=== PATIENT | female | born 1955 | race Caucasian/White ===

== ENCOUNTER 2021-12-15 09:26 | Inpatient (IN) | payer OTHER, MEDICARE, SELFPAY ==
[2021-12-15] VITALS (9 sets, daily range): BP systolic 124–142; BP diastolic 66–80; PULSE 73–91; RESP 15–22; TEMP 36.4–37.1; O2SAT 93–99; BMI 35.7
--- NOTE | 2021-12-15 10:22 | NURSING ---
per patient she has had nothing to eat or drink since yesterday afternoon (12/14/21)
[2021-12-15] MEDS: 0.9% Normal Saline 1,000 ML 100 ML IV ×2 (10:44→17:31)
--- NOTE | 2021-12-15 11:57 | NURSING ---
Patient off unit to AC with [employer] at this time.
[2021-12-15] MEDS: Ondansetron 4 MG/2 ML Vial IV (12:13)
[2021-12-15 12:52] LABS: Potassium 3.5 mmol/L (3.5-5.1)
[2021-12-15] MEDS: Lactated Ringers 1,000 ML 15 ML IV (13:00)
[2021-12-15] MEDS: Cefazolin 2 GM in 0.9% Normal Saline 100 ML IV (14:02)
--- NOTE | 2021-12-15 14:42 | PCM.CONS.U ---
HPI Consult Data Date of Consult: 12/15/21 HPI Narrative Reason for Consultation: 4 mm stone on the right side HPI Narrative: SARI MIKE, is a 66 F who presents as a transfer from an outside hospital CAT scan was done that reported a 4 mm stone in the distal right ureter she been having severe pain so today reticulocyte surgery to treat the stone I explained to the patient that if she gets a stent she needs to have it removed when she goes back to [place]. [facility] Medical History (Updated 12/15/21 @ 14:[address] Paco Dominique MD) Anemia Anxiety Cancer Chronic pain Depression GERD (gastroesophageal reflux disease) History of immunosuppression therapy Injury of head and neck Kidney stones Non-smoker Syncope Home Medications ciprofloxacin HCl 500 mg tablet (Cipro) 500 mg PO BID #6 tabs 12/15/21 [Rx Last Taken Unknown] omeprazole 20 mg capsule,delayed release 20 mg PO DAILY acid reflex 12/15/21 [History Last Taken 12/13/21] ondansetron HCl 4 mg tablet 4 mg PO Q6H PRN PRN Nausea 12/15/21 [History Last Taken Unknown] oxycodone-acetaminophen 5 mg-325 mg tablet 1 tab PO Q6H PRN pain 7 days #14 tabs 12/15/21 [Rx Last Taken Unknown] Allergy/AdvReac Type Severity Reaction Status Date / Time Iodinated Contrast Media Allergy Swelling Verified 12/15/21 09:53 shellfish derived Allergy Anaphylaxis Verified 12/15/21 09:53 Sulfa (Sulfonamide Allergy Other Verified 12/15/21 09:53 Antibiotics) Surgical History (Updated 12/15/21 @ 10:10 by Eden Cloud) S/P tubal ligation Social History Smoking Status: Never smoker Lab / Micro Data Result Diagrams: 12/15/21 12:40 Labs: Laboratory Results - last 24 hr 12/15/21 12:40: Potassium 3.5
--- NOTE | 2021-12-15 14:43 | DCINST_ITS ---
Discharge Instructions Diet Discharge Diet: No restrictions and Light diet - advance as tolerated Activity Discharge Activity: Return to Normal Activity and No Restrictions Follow Up Care Test Results: Test results from this visit will be discussed in further detail at your follow- up appointment, if applicable. Discharge Plan Admission Admit Date/Time: 12/15/21 09:48 Primary Reason for Your Visit: kidney Attending Provider: Ryan Eid Primary Care Provider: Care Physician,No Primary Consulting Providers: Jeff Sanchez ; Paco Dominique Discharge Orders/Prescriptions Prescriptions: New ciprofloxacin HCl [Cipro] 500 mg tablet 500 mg PO BID Qty: 6 0RF oxycodone-acetaminophen 5-325 mg tablet 1 tab PO Q6H PRN (Reason: pain) 7 Days Qty: 14 0RF Continued ondansetron HCl 4 mg tablet 4 mg PO Q6H PRN PRN (Reason: Nausea) Label Comments: TAKE 1 TABLET BY MOUTH EVERY 8 HOURS NEEDED FOR NAUSEA AND VOMITING omeprazole 20 mg capsule,delayed release(DR/EC) 20 mg PO DAILY Label Comments: TAKE 1 CAPSULE BY MOUTH EVERY DAY Referrals / Follow Up: Paco Dominique MD [Med Staff - Active Staff] - Care Physician,No Primary [Primary Care Provider] - Disposition Discharge Orders: Discharge Patient (Routine); Ordered 12/15/21 Ordered By: Dr. Paco Dominique
--- NOTE | 2021-12-15 14:45 | OP.PCM_ITS ---
Report of Operation Date of Procedure: 12/15/21 Pre-Operative Diagnosis: Right ureteral calculi 4 mm severe right flank pain Post-Operative Diagnosis: Same Surgery/Procedure Performed:: Cystoscopy right retrograde pyelogram right ureteroscopy, no stent Description of Surgical Findings:: Indication this is a 66-year-old female she is off from [place] and she was visiting the area of the [facility] presented to the emergency room with s evere right flank pain. A CT scan was done at [facility] and the report said that there was a 4 mm stone in the distal right ureter so she was transferred here for further care since there is no urologist in [place]. She explained having the pain on the right side rating down the right flank area. Spoke to the patient prior to surgery that we can take her surgery to go up and laser the stone she may need a stent and she needs that stent removed and we put a stent in. Patient was taken back to the operating room, after smooth induction of anesthesia she was placed in dorsolithotomy position. The urethra vaginal area prepped and draped in usual fashion when of the bladder with a 21 Palestinian rigid cystourethroscope, the urethra looked normal the trigone was normal identified the left ureteral orifices look normal the right ureteral orifice only slightly inflamed some trigonitis in the trigone. I then cannulated the right ureteral orifice with a Pollick catheter advanced it up I could not feel a stone I did a retrograde pyelogram I could not identify a stone on the retrograde pyelogram appeared to be draining normally and then put a wire up the right ureter and went in with a flexible 4.9 Palestinian flexible ureteroscope was able to get into the ureter easily and work my way all the way to the kidney inspected the upper pole midpole lower pole the kidney there was no stones visible no blood I then worked my way down the ureter and there was no stone fragments along the course of the ureter. The patient most likely had passed a stone. Probably just having some residual pain. No stent was placed since there was no stone and the ureter was nice and open. So the patient bladder was drained no stent was placed and she was taken back to PACU good condition. Surgeon: Paco Dominique Type of Anesthesia: General Drains: none Admit VTE Documentation VTE Present on Admission: No VTE Mechan Device Prophylaxis: SCD's VTE Pharm Prophylaxis ordered?: No
--- NOTE | 2021-12-15 15:07 | NURSING ---
[facility] lab ([place]) notified of request for results of cultures when have, fax number provided.
--- NOTE | 2021-12-15 16:13 | PCM.HP.STD ---
HPI - General General Date of Admission: 12/15/21 HPI Narrative SARI MIKE, is a 66 F who presents hospital from an outside hospital for right flank pain. She was found to have a 4 mm stone on imaging at that hospital as well as signs of UTI on UA. She was transferred here secondary to the fact that hospital did not have a urologist. She did receive a dose of IV antibiotics in the ER. She denies any shortness of breath or chest pain, she is currently undergoing chemotherapy for stage IV colon cancer. [facility] Medical History (Updated 12/15/21 @ 16:[address] Ryan Eid MD) Anemia Anxiety Cancer Chronic pain Depression GERD (gastroesophageal reflux disease) History of immunosuppression therapy Injury of head and neck Kidney stones Non-smoker Syncope Home Medications ciprofloxacin HCl 500 mg tablet (Cipro) 500 mg PO BID #6 tabs 12/15/21 [Rx Last Taken Unknown] omeprazole 20 mg capsule,delayed release 20 mg PO DAILY acid reflex 12/15/21 [History Last Taken 12/13/21] ondansetron HCl 4 mg tablet 4 mg PO Q6H PRN PRN Nausea 12/15/21 [History Last Taken Unknown] oxycodone-acetaminophen 5 mg-325 mg tablet 1 tab PO Q6H PRN pain 7 days #14 tabs 12/15/21 [Rx Last Taken Unknown] Allergy/AdvReac Type Severity Reaction Status Date / Time Iodinated Contrast Media Allergy Swelling Verified 12/15/21 09:53 shellfish derived Allergy Anaphylaxis Verified 12/15/21 09:53 Sulfa (Sulfonamide Allergy Other Verified 12/15/21 09:53 Antibiotics) Family History (Updated 12/15/21 @ 16:[address] Ryan Eid MD) Other Cancer Surgical History (Updated 12/15/21 @ 10:10 by Eden Cloud) S/P tubal ligation Social History Smoking Status: Never smoker ROS Constitutional Constitutional: Reports fever(s); Denies chills, fatigue or malaise Eyes Eyes: Denies blurry vision ENT HEENT: Denies headache(s) or nasal discharge Cardiovascular Cardiovascular: Denies chest pain, dyspnea on exertion or syncope Respiratory/Chest Respiratory/Chest: Denies cough, shortness of breath at rest or shortness of breath with exertion Gastrointestinal Gastrointestinal: Reports abdominal pain, nausea and vomiting; Denies constipation or diarrhea Genitourinary Genitourinary: Denies dysuria Neurologic Neurologic: Denies focal weakness, numbness or tremor(s) Psychiatric Psychiatric: Denies anxiety or depression Vital Signs Vital Signs Vital Signs: 12/15/21 09:51 12/15/21 11:44 12/15/21 14:50 Temperature 98.1 F 98.1 F 97.7 F L Temperature Source Oral Oral Temporal Pulse Rate 76 76 81 Respiratory Rate 22 H 22 H 15 Respiratory Pattern Normal Blood Pressure 126/80 H 126/80 H 139/67 H Blood Pressure Mean 95 95 91 Blood Pressure Source Monitor Monitor Blood Pressure Position Semi-Fowlers Semi-Fowlers Blood Pressure Location Right Arm Right Arm Baseline BP 126/80 Pulse Ox 99 99 97 Oxygen Delivery Method Room Air Room Air Room Air 12/15/21 15:00 12/15/21 15:13 12/15/21 15:34 Temperature 97.6 F L 97.5 F L Temperature Source Temporal Oral Pulse Rate 77 75 73 Respiratory Rate 18 15 18 Respiratory Pattern Blood Pressure 142/66 H 135/67 H 129/66 H Blood Pressure Mean 91 89 87 Blood Pressure Source Monitor Monitor Monitor Blood Pressure Position Semi-Fowlers Semi-Fowlers Semi-Fowlers Blood Pressure Location Right Arm Right Arm Right Arm Baseline BP 126/80 126/80 Pulse Ox 93 95 99 Oxygen Delivery Method Room Air Room Air Room Air Weight Weight: 195 lb 8.8 oz Body Mass Index (BMI) 35.7 Physical Exam Narrative General: Alert, Oriented x3, Cooperative, No apparent distress HEENT: Atraumatic, PERRLA, EOMI, Normocephalic Oral: Moist Mucosa Neck: Supple, No JVD Lungs: Clear to auscultation, Normal air movement, No rhonchi, No wheeze, No rales Cardiovascular: Regular rate, Regular Rhythm, Normal S1, Normal S2, No murmurs Abdomen: Soft, Non Tender, Non-Distended, No Hepato-splenomegaly Extremities: No edema, Capillary Refill Less than 3 Seconds Skin: No rashes, No breakdown Musculoskeletal: No Tenderness to Palpation of Joints or Extremities Neurological: Cranial nerves II-XII grossly intact, Motor Exam 5/5 strength throughout, Sensory exam intact to light touch and pain Psych/Mental Status: Normal Affect, Appropriate Results Lab / Micro Data Result Diagrams: 12/15/21 12:40 Labs: Laboratory Results - last 24 hr 12/15/21 12:40: Potassium 3.5 Assessment & Plan Assessment/Plan (1) Kidney stones: (2) UTI (urinary tract infection): PLAN: Plan 1. UTI secondary to kidney stone ? Continue with IV antibiotics ? She had a cystoscopy today which demonstrated no stone, she likely passed it prior to the procedure ? Continue with pain medications ? She would like to stay tonight because they are from out of town and they only have a hotel room down by the outside hospital. ? We will try to get in touch with the outside hospital tomorrow to obtain culture data to be able to narrow p.o. antibiotic choices ? I did also recommend that if we do not have culture data by tomorrow morning, that she is to notify her oncologist so that way they can get the results from the outside hospital and adjust antibiotics as necessary. 2. Stage IV colon cancer ? She is due for her next round of chemo on Monday, she should be completing antibiotics by then ? I discussed with her that she can talk to her oncologist about pushing back the chemo dose if they feel like it is appropriate secondary to her recent infection DVT: SCDs Charges/Coding Visit Charges Inpatient E&M: 81993 Init Hosp L2
[2021-12-15] MEDS: Docusate Sodium 100 MG Capsule PO (17:59)
[2021-12-15] MEDS: Polyethylene Glycol 3350 17 GM PACKET PO (17:59)
[2021-12-16 00:14] VITALS: BP 130/65; PULSE 76; RESP 18; TEMP 36.8; O2SAT 93
[2021-12-16] MEDS: 0.9% Normal Saline 1,000 ML 100 ML IV (03:36)
[2021-12-16 06:08] LABS: Absolute Lymphocyte Count 0.78 X10^3/uL (0.83-4.51); Absolute Neutrophil Count 3.6 X10^3/uL (2.0-7.7); Basophil# 0.01 X10^3/uL; Basophil% 0.2 % (0-1); Eosinophil# 0.06 X10^3/uL; Eosinophils% 0.9 % (0-5); Hemoglobin 10.8 g/dL (12.0-15.0); Lymphocyte # 0.78 X10^3/ul (0.83-4.51); Lymphocyte % 12.2 % (19-41); Mean Corp Hgb Conc 32.7 g/dL (32-36); Mean Corpuscular Hgb 31.8 pg (27.0-32.0); Mean Corpuscular Volume 97.1 fL (81-99); Mean Platelet Vol. 9.4 fl (6.2-12.0); Monocyte# 1.86 X10^3/uL; Monocyte% 29.2 % (0-10); NRBC Flagged by Analyzer 0 % (0-5); Neutrophil # 3.63 X10^3/uL (2.7-7.7); POSITIVE DIFFERENTIAL YES; Platelet Count 199 K/mm3 (150-450); RBC Distribution Width CV 14.3 % (11.6-14.6); RBC Distribution Width SD 50.5 fl (35.1-43.9); White Blood Count 6.4 K/mm3 (4.4-11.0)
[2021-12-16 06:21] VITALS: BP 133/68; PULSE 64; RESP 18; TEMP 36.7; O2SAT 97
[2021-12-16 06:22] LABS: Differential Indicated SCAN CRITERIA MET
[2021-12-16 06:23] LABS: Differential Comment SCANNED
[2021-12-16 06:30] LABS: Anion Gap 7 (5-15); BUN 11 mg/dL (7-18); BUN/Creat Ratio 16.9 RATIO (10-20); Calcium,Total 7.7 mg/dL (8.5-10.1); Chloride 109 mmol/L (98-107); Creatinine, Serum 0.65 mg/dL (0.55-1.02); EST Glomerular Filtration Rate 97 mL/min (>60); Est Glom Filt Rate - Afr Amer 118 mL/min (>60); Estimated Creatinine Clearance 69.16 ml/min; Glucose 105 mg/dL (74-106); Potassium 3.1 mmol/L (3.5-5.1); Sodium Level 141 mmol/L (136-145)
[2021-12-16 07:48] LABS: Magnesium 1.8 mg/dL (1.6-2.6)
[2021-12-16] MEDS: Ceftriaxone 1 GM/50 ML BAG IV (10:13)
[2021-12-16 10:17] VITALS: BP 122/60; PULSE 70; RESP 17; TEMP 36.4; O2SAT 100
[2021-12-16] MEDS: Potassium Chloride Oral Tablet 20 MEQ 60 MEQ PO (10:27)
--- NOTE | 2021-12-16 11:29 | DCINST_ITS ---
Discharge Instructions Diet Discharge Diet: No restrictions and Light diet - advance as tolerated Dressing / Incision Call your doctor if you observe: Fever of 101 or Higher, Shortness of breath, Dizziness, Fainting spells, Swelling in the ankles, Chest pain and Increased palpitations (irregular heartbeat) Follow Up Care Test Results: Test results from this visit will be discussed in further detail at your follow- up appointment, if applicable. Discharge Plan Admission Admit Date/Time: 12/15/21 09:48 Primary Reason for Your Visit: kidney Attending Provider: Ryan Eid Primary Care Provider: Care Physician,No Primary Consulting Providers: Jeff Sanchez ; Paco Dominique Discharge Orders/Prescriptions Prescriptions: New ciprofloxacin HCl [Cipro] 500 mg tablet 500 mg PO BID Qty: 6 0RF oxycodone-acetaminophen 5-325 mg tablet 1 tab PO Q6H PRN (Reason: pain) 7 Days Qty: 14 0RF Continued ondansetron HCl 4 mg tablet 4 mg PO Q6H PRN PRN (Reason: Nausea) Label Comments: TAKE 1 TABLET BY MOUTH EVERY 8 HOURS NEEDED FOR NAUSEA AND VOMITING omeprazole 20 mg capsule,delayed release(DR/EC) 20 mg PO DAILY Label Comments: TAKE 1 CAPSULE BY MOUTH EVERY DAY Referrals / Follow Up: Paco Dominique MD [Med Staff - Active Staff] - Care Physician,No Primary [Primary Care Provider] - Disposition Disposition (needs filled in before D/C Order can be placed): Home, Self Care
--- NOTE | 2021-12-16 11:30 | CASEMGMT ---
RN HARRISON RELATIONSHIP MANAGER CM to room to meet with patient for initial transition planning/care coordination assessment. RN HARRISON introduced self and role at [facility]. Pt voices understanding and consents to assessment at this time. Pt resting in bed in no distress at this time. Pt is A/O at this time and answers all questions appropriately. Care providers, pharmacy, and demographics verified/updated at this time. PCP: Dr Jara in [place], [place] Specialists:Dr Trinidad, oncologist @ [facility] in [place], [place]. Pt states she gets chemo tx's every other week. Preferred Pharmacy: [facility] retail Insurance: [employer], MCR A Prescription Benefit: Yes Living Will/HPOA: Pt does not currently have LW/HCPOA LNOK: , Sanjeev Living Arrangements: Lives w/her and 92-yr-old uncle in one-story home w/basement w/2 steps to enter. Uncle stays on the main floor. Pt and her live in the basement. 10 steps to the basement. Pt states she does okay with the stairs most of the time unless I'm not feeling well. She states she just takes them slowly. There is a bathroom on both floors. Pt reports being independent w/ADL's and IADL's and helps take care of her uncle (home mgmt tasks mostly). Transportation: Pt states both she and her drive, although he has been doing most of the driving lately. DME: Has a walker and BSC available, but does not use them. Denies any DME needs. HHC/SNF: No hx of SNF. Has had HHC in the past. Denies need for HHC and no needs identified. Pt wishes to return home and states has no concerns with going home at time of discharge. CM to follow for any discharge planning/needs. Pt voices no concerns/needs at this time. Advised pt to ask for CM if any questions/concerns/needs arise. Voices understanding. PLAN: Home w/spousal support and discharge plans in place. Prateek SKY RN, CM
--- NOTE | 2021-12-16 12:55 | DS.PCM_ITS ---
Providers Date of Admission: 12/15/21 Primary Care Physician: No Primary Care Phys Consultations 12/15/21 09:47 Consult: Urology Routine Consulting Provider: Paco Dominique Reason for Consult: UTi with stone EMERGENT Consult: No MD Notified: Yes Date Notified: 12/15/21 Time Notified: 10:28 Method of Notification: Verbal Comments:: Aware the patient is coming Reason For Visit: TX FROM [place]/KIDNEY STONE Diagnosis Discharge Diagnosis (1) Kidney stones: Status: Acute Code(s): N20.0 - Calculus of kidney (2) UTI (urinary tract infection): Status: Acute Code(s): N39.0 - Urinary tract infection, site not specified Plan 1. UTI secondary to kidney stone ? Continue with IV antibiotics ? She had a cystoscopy today which demonstrated no stone, she likely passed it prior to the procedure ? Continue with pain medications ? She would like to stay tonight because they are from out of town and they only have a hotel room down by the outside hospital. ? We will try to get in touch with the outside hospital tomorrow to obtain culture data to be able to narrow p.o. antibiotic choices ? I did also recommend that if we do not have culture data by tomorrow morning, that she is to notify her oncologist so that way they can get the results from the outside hospital and adjust antibiotics as necessary. 2. Stage IV colon cancer ? She is due for her next round of chemo on Monday, she should be completing antibiotics by then ? I discussed with her that she can talk to her oncologist about pushing back the chemo dose if they feel like it is appropriate secondary to her recent infection DVT: SCDs Medications at Discharge Home Medications ciprofloxacin HCl 500 mg tablet (Cipro) 500 mg PO BID #6 tabs 12/15/21 omeprazole 20 mg capsule,delayed release 20 mg PO DAILY acid reflex 12/15/21 ondansetron HCl 4 mg tablet 4 mg PO Q6H PRN PRN Nausea 12/15/21 oxycodone-acetaminophen 5 mg-325 mg tablet 1 tab PO Q6H PRN pain 7 days #14 tabs 12/15/21 Hospital Course Operations None and - (Cystoscopy) Procedures None Summary of Care Provided Minutes Spent on Discharge: 41 Hospital Course: Per HPI: SARI MALI MIKE, is a 66 F who presents hospital from an outside hospital for right flank pain.? She was found to have a 4 mm stone on imaging at that hospital as well as signs of UTI on UA.? She was transferred here secondary to the fact that hospital did not have a urologist.? She did receive a dose of IV antibiotics in the ER.? She denies any shortness of breath or chest pain, she is currently undergoing chemotherapy for stage IV colon cancer. Hospital Course: 1. UTI secondary to kidney stone?66-year-old female with a history of stage IV colon cancer presents to the hospital with right flank pain. She presented to an outside hospital and they did imaging and saw a stone and her UA was consi stent with a UTI. She does have a urine culture pending however the sensitivities are not completed yet. I discussed with her the plan for possible discharge today she expressed understanding of the risk benefits going home and wants to go home today. She understands that she had no intervention done with the cystoscopy as it appeared that the stone had already passed and no stent was placed. She was discharged on 3 days of Cipro to complete treatment for her UTI, I also recommend that she have her oncologist call the outside hospital to obtain finalized culture studies and sensitivities in case antibiotics need to be changed given the fact that she still on chemotherapy. Unfortunately they are visiting down here and they do not have a hotel room for the night and so they would prefer to go home today as they live in [place]. She will need to follow-up with her PCP in 3 to 5 days. Physical Exam Narrative General: Alert, Oriented x3, Cooperative, No apparent distress HEENT: Atraumatic, PERRLA, EOMI, Normocephalic Oral: Moist Mucosa Neck: Supple, No JVD Lungs: Clear to auscultation, Normal air movement, No rhonchi, No wheeze, No rales Cardiovascular: Regular rate, Regular Rhythm, Normal S1, Normal S2, No murmurs Abdomen: Soft, Non Tender, Non-Distended, No Hepato-splenomegaly Extremities: No edema, Capillary Refill Less than 3 Seconds Skin: No rashes, No breakdown Musculoskeletal: No Tenderness to Palpation of Joints or Extremities Neurological: Cranial nerves II-XII grossly intact, Motor Exam 5/5 strength throughout, Sensory exam intact to light touch and pain Psych/Mental Status: Normal Affect, Appropriate Weight / BMI Weight Weight: 195 lb 8.8 oz Body Mass Index (BMI) 35.7 ABG / Lab / Microbiology Data Result Diagrams: 12/16/21 05:29 12/16/21 05:29 Laboratory: Laboratory Results - last 24 hr 12/16/21 05:29: WBC 6.4, RBC 3.40 L, Hgb 10.8 L, Hct 33.0 L, MCV 97.1, MCH 31.8, MCHC 32.7, RDW Std Deviation 50.5 H, RDW Coeff of Ariel 14.3, Plt Count 199, MPV 9.4, Immature Gran % (Auto) 0.500, Neut % (Auto) 57.0, Lymph % (Auto) 12.2 L, [place] % (Auto) 29.2 H, Eos % (Auto) 0.9, Baso % (Auto) 0.2, Absolute Neuts (auto) 3.6, Absolute Lymphs (auto) 0.78 L, Nucleated RBC % 0, Differential Comment SCANNED 12/16/21 05:29: Sodium 141, Potassium 3.1 L, Chloride 109 H, Carbon Dioxide 25.0, Anion Gap 7, BUN 11, Creatinine 0.65, Estim Creat Clear Calc 69.16, Est GFR (MDRD) Af Amer 118, Est GFR (MDRD) Non-Af 97, BUN/Creatinine Ratio 16.9, Glucose 105, Calcium 7.7 L 12/16/21 05:29: Phosphorus 3.0, Magnesium 1.8 D/C Instructions Discharge Diet: No restrictions and Light diet - advance as tolerated Call your doctor if you observe: Fever of 101 or Higher, Shortness of breath, Dizziness, Fainting spells, Swelling in the ankles, Chest pain and Increased palpitations (irregular heartbeat) Meaningful Use Info Meaningful Use Diagnoses (Choose all that apply): None applicable Discharge Plan Admission Admit Date/Time: 12/15/21 09:48 Primary Reason for Your Visit: kidney Attending Provider: Ryan Eid Primary Care Provider: Care Physician,No Primary Consulting Providers: Jeff Sanchez ; Paco Dominique Discharge Orders/Prescriptions Prescriptions: New ciprofloxacin HCl [Cipro] 500 mg tablet 500 mg PO BID Qty: 6 0RF oxycodone-acetaminophen 5-325 mg tablet 1 tab PO Q6H PRN (Reason: pain) 7 Days Qty: 14 0RF Continued ondansetron HCl 4 mg tablet 4 mg PO Q6H PRN PRN (Reason: Nausea) Label Comments: TAKE 1 TABLET BY MOUTH EVERY 8 HOURS NEEDED FOR NAUSEA AND VOMITING omeprazole 20 mg capsule,delayed release(DR/EC) 20 mg PO DAILY Label Comments: TAKE 1 CAPSULE BY MOUTH EVERY DAY Referrals / Follow Up: Paco Dominique MD [Med Staff - Active Staff] - Care Physician,No Primary [Primary Care Provider] - Disposition Disposition (needs filled in before D/C Order can be placed): Home, Self Care Charges/Coding Visit Charges Inpatient E&M: 36748 Disch Hosp
== END 2021-12-16 13:45 | disposition home or self-care (01) | DRG 694 ==
PROVIDERS: Anesthesiology; Urology; Admitting Provider Hospitalist; Referring Provider Hospitalist; Visit Provider Family Medicine
PROC: 0TJ98ZZ Inspection of Ureter, Via Natural or Artificial Opening Endoscopic (ICD-10-PCS; CPT 52352; principal; 2021-12-15 12:55)
DX: N20.0 Calculus of kidney (principal); C18.9 Malignant neoplasm of colon, unspecified; N39.0 Urinary tract infection, site not specified
CPT/HCPCS: 36415; 76000; 80048; 83735; 84100; 84132; 85025; J7030; J7120; J2405